=== PATIENT | female | born 1940 | race Caucasian/White ===

== ENCOUNTER → 2019-01-25 | Outpatient (CLI) | payer OTHER, BC | LOC: HYPER 01-02 08:41 | DX: L97.422 Non-pressure chronic ulcer of left heel and midfoot with fat layer exposed (principal); L30.9 Dermatitis, unspecified; L85.3 Xerosis cutis; E78.5 Hyperlipidemia, unspecified; E66.9 Obesity, unspecified; I87.2 Venous insufficiency (chronic) (peripheral); I10 Essential (primary) hypertension; G47.33 Obstructive sleep apnea (adult) (pediatric); G43.909 Migraine, unspecified, not intractable, without status migrainosus; N28.1 Cyst of kidney, acquired; L40.9 Psoriasis, unspecified; K57.30 Diverticulosis of large intestine without perforation or abscess without bleeding; K21.9 Gastro-esophageal reflux disease without esophagitis; M05.79 Rheumatoid arthritis with rheumatoid factor of multiple sites without organ or systems involvement; M54.16 Radiculopathy, lumbar region; Z98.890 Other specified postprocedural states; Z86.010 Personal history of colon polyps; Z85.51 Personal history of malignant neoplasm of bladder; Z87.891 Personal history of nicotine dependence; Z87.2 Personal history of diseases of the skin and subcutaneous tissue; Z90.49 Acquired absence of other specified parts of digestive tract; Z68.41 Body mass index [BMI] 40.0-44.9, adult ==

== ENCOUNTER 2020-02-16 13:53 | Emergency (ER) | payer OTHER, BC ==
[~2020-02-16] VITALS: Ht 165.1 cm; Wt 90.7 kg
[2020-02-16] MEDS ORDERED: LAMISIL AT 1% C12 G1 TOP (16:13)
[2020-02-16] MEDS ORDERED: VIBRAMYCIN 100100 MG PO (16:13)
[2020-02-16 16:22] LABS: ABSOLUTE NEUTROPHILS 9.1 thou/uL (1.4-8.2); BASOPHILS 1.2 % (0.0-2.0); EOSINOPHILS 1.9 % (0.0-3.0); HEMATOCRIT 38.9 % (37.0-47.0); HEMOGLOBIN 12.7 gm/dL (12.0-15.0); LYMPHOCYTES 13.6 % (24.0-44.0); MCH 27.3 pg (26.0-34.0); MCHC 32.6 g/dL (28.0-37.0); MCV 83.8 fL (80.0-100.0); MONOCYTES 7.8 % (1.0-8.0); PLATELET COUNT 257 thou/uL (150-400); POLYS 75.5 % (36.0-66.0); RBC 4.65 mil/uL (4.20-5.00); RDW 15.4 % (10.5-14.5); WBC 12.1 thou/uL (4.0-11.0)
[2020-02-16 16:38] LABS: CALCIUM 8.5 mg/dL (8.5-10.1); CREATININE 0.5 mg/dL (0.6-1.0); POTASSIUM 3.8 mmol/L (3.5-5.1)
[2020-02-16 16:44] LABS: ALBUMIN 3.3 g/dL (3.4-5.0); TOTAL BILIRUBIN 0.3 mg/dL (0.2-1.0); TOTAL PROTEIN 7.5 g/dL (6.4-8.2)
[2020-02-16 16:58] VITALS: BP 147/72
== END 2020-02-16 16:59 | disposition home or self-care (01) ==
LOC: ER 13:53
PROVIDERS: Emergency Medicine
DX: B35.3 Tinea pedis (principal); M06.9 Rheumatoid arthritis, unspecified; Z90.49 Acquired absence of other specified parts of digestive tract; Z87.01 Personal history of pneumonia (recurrent); Z87.891 Personal history of nicotine dependence